=== PATIENT | female | born 1995 | race African-American/Black ===

== ENCOUNTER 2017-02-14 05:58 | Inpatient (IN) ==
[2017-02-14] MEDS ORDERED: MEPERIDINE 50 MG/1 ML VIAL IM PRN (06:12)
[2017-02-14] MEDS ORDERED: BUTORPHANOL 2 MG/ML VIAL IV PRN (06:12)
[2017-02-14] MEDS: LACTATED RINGERS 1,000 ML IV SCH ×3 (06:23→22:50)
[2017-02-14 06:57] LABS: Basophils % 0.1 % (0.0-0.8); Eosinophils # 0.1 10*3/uL (0.0-0.87); Eosinophils % 1.4 % (0.00-10.9); Hematocrit 34.9 VOL% (35.7-47.0); Hemoglobin 11.1 GM/DL (12.0-16.0); Immature Granulocytes % 0.7 %; Immature Granulocytes Absolute 0.06 #; Lymphocytes # 2.5 10*3/uL (1.4-4.0); Lymphocytes % 30.3 % (21.3-54.2); Mean Corpuscular HGB Conc 31.8 GM/DL (32-36); Mean Corpuscular Hemoglobin 24 PG (27-34); Mean Corpuscular Volume 75.9 FL (87-102); Monocytes # 0.6 10*3/uL (0.11-0.8); Monocytes % 7.4 % (1.7-12.7); NRBC # 0.02 10*3/uL; Neutrophils % 60.1 % (38.7-73.9); Platelet Count 130 T/CUMM (130-400); Red Cell Distribution Width 15.3 % (9.3-17.3); White Blood Count 8.4 T/CUMM (4-12)
[2017-02-14 07:18] LABS: Giant Platelets Few; Hypochromasia 1+; Ovalocytes Slight; Platelet Estimate Normal
[2017-02-14 07:23] LABS: Alanine Aminotransferase 18 U/L (13-56); Albumin 2.8 G/DL (3.4-5.0); Alkaline Phosphatase 148 U/L (45-117); Aspartate Amino Transferase 13 U/L (0-37); Bilirubin,Total < 0.39 MG/DL (0.2-1.0); Blood Urea Nitrogen 6 MG/DL (7-18); Calcium 8.5 MG/DL (8.5-10.1); Glucose 85 MG/DL (74-106); Osmolality,Calculated 273.5 MOS/KG (273-304); Potassium 3.7 MMOL/L (3.5-5.1); Sodium 139 MMOL/L (136-145); Total Protein 6.5 G/DL (6.4-8.3)
[2017-02-14] MEDS ORDERED: OXYTOCIN/LR 20 UNIT/1,000 ML BAG IV SCH (07:30)
[2017-02-14] MEDS ORDERED: ACETAMINOPHEN 500 MG TABLET PO ONE (08:38)
[2017-02-14] MEDS ORDERED: hydrOXYzine HCL 25 MG/1 ML VIAL IM PRN (10:31)
[2017-02-14] MEDS ORDERED: ePHEDrine 50 MG/ML AMP IV PRN (10:31)
[2017-02-14] MEDS ORDERED: CITRIC ACID/SODIUM CITRATE 30 ML UDCUP PO ONE (10:31)
[2017-02-14] MEDS ORDERED: LACTATED RINGERS 1,000 ML IV ONE (10:31)
[2017-02-14] MEDS ORDERED: diphenhydrAMINE 50 MG/1 ML VIAL IV PRN ×2 (10:31)
[2017-02-14] MEDS ORDERED: FAMOTIDINE 20 MG/2 ML VIAL IV ONE (10:31)
[2017-02-14] MEDS ORDERED: PROMETHAZINE 25 MG/1 ML VIAL IM ONE (10:31)
[2017-02-14] MEDS ORDERED: fentaNYL 2 MCG/ROPIV 0.2% EPID 150 ML EPIDURAL SCH (11:00)
[2017-02-14] MEDS ORDERED: ROPIVACAINE 0.5% 30 ML VIAL ONE (11:15)
[2017-02-14] MEDS: ONDANSETRON 4 MG/2 ML VIAL IV PRN ×2 (12:10→16:00)
[2017-02-14 12:40] LABS: Apearance,Urine CLEAR (Clear); Bacteria,Urine Occasional /HPF (Few); Bilirubin,Urine Negative (Negative); Blood, Urine Negative (Negative); Glucose,Urine (UA) Negative (Negative); Ketones,Urine Negative (Negative); Mucus,Urine Occasional /LPF (Occasional); Nitrite,Urine Negative (Negative); Protein,Urine Negative; RBC,Urine 1 /HPF (0-4); Urine Color Yellow (Yellow); Urine Specific Gravity 1.009 (1.001-1.035); Urine Urobilinogen < 2.0 EU/DL (0.2-1.0); WBC,Urine <1 /HPF (0-6)
[2017-02-14] MEDS ORDERED: miSOPROStol 200 MCG TABLET ONE (20:11)
[2017-02-14] MEDS ORDERED: LANOLIN 50% CREAM 0.3 OZ TUBE TOP PRN (20:25)
[2017-02-14] MEDS ORDERED: BISACODYL 10 MG SUPP RECTAL PRN (20:25)
[2017-02-14] MEDS ORDERED: MEASLES/MUMPS/RUBELLA VACCINE 0.5 ML VIAL SUBCUT ONE (20:25)
[2017-02-14] MEDS ORDERED: DIPH/TET/ACEL PERT BOOSTER VACCINE 0.5 ML VIAL IM ONE (20:25)
[2017-02-14] MEDS ORDERED: ONDANSETRON 4 MG/2 ML VIAL IV PRN (20:25)
[2017-02-14] MEDS ORDERED: oxyCODONE/ACETAMINOPHEN 5-325 MG TABLET PO PRN (20:25)
[2017-02-14] MEDS ORDERED: WITCH HAZEL PADS 100/JAR TOP PRN (20:25)
[2017-02-14] MEDS ORDERED: RHO(D) IMMUNE GLOBULIN 300 MCG SYRINGE IM ONE (20:25)
[2017-02-14] MEDS ORDERED: BENZOCAINE 20%/MENTHOL 0.5% SPRAY 56 GM CAN TOP PRN (20:25)
[2017-02-14] MEDS ORDERED: HYDROCORTISONE 2.5% RECTAL CREAM 30 GM TUBE TOP PRN (20:25)
[2017-02-14] MEDS ORDERED: ACETAMINOPHEN 325 MG TABLET PO PRN (20:25)
[2017-02-14] MEDS ORDERED: OXYTOCIN/LR 20 UNIT/1,000 ML BAG IV ONE ×2 (20:25→22:48)
[2017-02-14] MEDS: IBUPROFEN 800 MG TABLET PO PRN (21:36)
[2017-02-15] MEDS: oxyCODONE/ACETAMINOPHEN 5-325 MG TABLET PO PRN ×3 (05:21→19:58)
[2017-02-15 07:17] LABS: Basophils % 0.2 % (0.0-0.8); Eosinophils # 0.1 10*3/uL (0.0-0.87); Eosinophils % 0.5 % (0.00-10.9); Hematocrit 29.7 VOL% (35.7-47.0); Hemoglobin 9.6 GM/DL (12.0-16.0); Immature Granulocytes % 0.6 %; Immature Granulocytes Absolute 0.08 #; Lymphocytes # 2.3 10*3/uL (1.4-4.0); Lymphocytes % 17.3 % (21.3-54.2); Mean Corpuscular HGB Conc 32.3 GM/DL (32-36); Mean Corpuscular Hemoglobin 25 PG (27-34); Mean Corpuscular Volume 75.8 FL (87-102); Monocytes % 7.3 % (1.7-12.7); Neutrophils # 9.7 10*3/uL (1.4-7.4); Neutrophils % 74.1 % (38.7-73.9); Platelet Count 113 T/CUMM (130-400); Red Blood Count 3.92 MC/CUMM (3.8-5.5); Red Cell Distribution Width 15.3 % (9.3-17.3); White Blood Count 13.1 T/CUMM (4-12)
[2017-02-15 07:45] LABS: Band Neutrophils 1 % (0-10); Giant Platelets Few; Hypochromasia 1+; Lymphocytes 16 % (20-55); Platelet Estimate Decreased; Segmented Neutrophils 79 % (50-85); Total Cells Counted 100
[2017-02-15] MEDS: IBUPROFEN 800 MG TABLET PO PRN ×2 (09:05→19:55)
[2017-02-15] MEDS: DOCUSATE SODIUM 100 MG CAPSULE PO SCH ×3 (15:49→20:45)
[2017-02-16] MEDS: IBUPROFEN 800 MG TABLET PO PRN ×2 (03:07→08:32)
[2017-02-16] MEDS: oxyCODONE/ACETAMINOPHEN 5-325 MG TABLET PO PRN (03:09)
[2017-02-16 07:36] VITALS: BP 130/61
[2017-02-16] MEDS: DOCUSATE SODIUM 100 MG CAPSULE PO SCH (08:32)
== END 2017-02-16 11:05 | disposition home or self-care (01) | DRG 775 ==
LOC: N.LDOUT 05:58 → N.LD 06:03 → N.OB 23:00
PROVIDERS: ADMIT Obstetrics & Gynecology; ATTEND Obstetrics & Gynecology

== ENCOUNTER 2020-07-31 10:28 | Inpatient (IN) ==
[2020-07-31] MEDS: LACTATED RINGERS 1,000 ML IV SCH ×2 (10:50→21:15)
[2020-07-31] MEDS ORDERED: BUTORPHANOL 2 MG/ML VIAL IV PRN (11:10)
[2020-07-31] MEDS ORDERED: ONDANSETRON 4 MG/2 ML VIAL IV PRN ×2 (11:10→22:07)
[2020-07-31] MEDS ORDERED: MEPERIDINE 50 MG/1 ML VIAL IV PRN (11:10)
[2020-07-31 11:17] LABS: Eosinophils % 0.7 % (0.00-10.9); Hematocrit 27.3 VOL% (35.7-47.0); Hemoglobin 8.1 GM/DL (12.0-16.0); Immature Granulocytes % 0.7 %; Immature Granulocytes Absolute 0.04 #; Lymphocytes # 1.5 10*3/uL (1.4-4.0); Lymphocytes % 25.9 % (21.3-54.2); Mean Corpuscular HGB Conc 29.7 GM/DL (32-36); Monocytes % 8.1 % (1.7-12.7); Neutrophils % 64.6 % (38.7-73.9); Platelet Count 153 T/CUMM (130-400); Red Blood Count 3.69 MC/CUMM (3.8-5.5); White Blood Count 5.8 T/CUMM (4-12)
[2020-07-31] MEDS ORDERED: OXYTOCIN/LR 20 UNIT/1,000 ML BAG IV SCH (11:30)
[2020-07-31 11:32] LABS: Alanine Aminotransferase 13 U/L (13-56); Albumin 2.6 G/DL (3.4-5.0); Alkaline Phosphatase 157 U/L (45-117); Aspartate Amino Transferase 15 U/L (0-37); Bilirubin,Total < 0.39 MG/DL (0.2-1.0); Blood Urea Nitrogen 4 MG/DL (7-18); Calcium 8.4 MG/DL (8.5-10.1); Carbon Dioxide 21 MMOL/L (21-32); Estimated Glom Filtration Rate 197 ML/MIN; Glucose 75 MG/DL (74-106); Osmolality,Calculated 270.7 MOS/KG (273-304); Potassium 3.7 MMOL/L (3.5-5.1); Sodium 138 MMOL/L (136-145); Total Protein 6.6 G/DL (6.4-8.2)
[2020-07-31 11:56] LABS: Tear Drop Cells Few
[2020-07-31 11:57] LABS: Hypochromasia 3+; Microcytosis 2+; Ovalocytes Few; Platelet Estimate Adequate; Polychromasia Slight
[2020-07-31] MEDS ORDERED: hydrOXYzine HCL 25 MG/1 ML VIAL IM PRN (11:59)
[2020-07-31] MEDS ORDERED: diphenhydrAMINE 50 MG/1 ML VIAL IV PRN ×2 (11:59)
[2020-07-31] MEDS ORDERED: PROMETHAZINE 25 MG/1 ML VIAL IM ONE (11:59)
[2020-07-31] MEDS ORDERED: LACTATED RINGERS 1,000 ML IV ONE (11:59)
[2020-07-31] MEDS ORDERED: ePHEDrine 50 MG/ML VIAL IV PRN (11:59)
[2020-07-31] MEDS ORDERED: FAMOTIDINE 20 MG/2 ML VIAL IV ONE (11:59)
[2020-07-31] MEDS ORDERED: NALOXONE 0.4 MG/ML VIAL IV PRN (11:59)
[2020-07-31] MEDS ORDERED: ONDANSETRON 4 MG/2 ML VIAL IV ONE (11:59)
[2020-07-31] MEDS ORDERED: CITRIC ACID/SODIUM CITRATE 30 ML UDCUP PO ONE (11:59)
[2020-07-31] MEDS ORDERED: fentaNYL 2 MCG/ROPIV 0.2% EPID 100 ML EPIDURAL SCH (12:00)
[2020-07-31 13:14] LABS: Rubella Antibody IgG Result Reactive (NonReactive)
[2020-07-31 14:33] LABS: Bilirubin,Urine Negative (Negative); Blood, Urine Negative (Negative); Glucose,Urine (UA) Negative (Negative); Ketones,Urine Negative (Negative); Mucus,Urine Occasional /LPF (Occasional); Nitrite,Urine Negative (Negative); Protein,Urine Negative; RBC,Urine 6 /HPF (0-4); Squamous Epithelial Cell,Urine Moderate /HPF (0-10); Urine Appearance CLOUDY (Clear); Urine Color Yellow (Yellow); Urine Specific Gravity 1.012 (1.001-1.035); Urine Urobilinogen < 2.0 EU/DL (0.2-1.0)
[2020-07-31] MEDS ORDERED: miSOPROStoL 200 MCG TABLET ONE (21:25)
[2020-07-31] MEDS ORDERED: TRANEXAMIC ACID 1,000 MG/10 ML VIAL ONE (21:26)
[2020-07-31] MEDS ORDERED: OXYTOCIN/LR 20 UNIT/1,000 ML BAG IV ONE ×2 (21:26→22:07)
[2020-07-31] MEDS ORDERED: METHYLERGONOVINE 0.2 MG/1 ML AMP ONE (21:26)
[2020-07-31] MEDS ORDERED: CARBOPROST TROMETHAMINE 250 MCG/ML AMP IM ONE (21:26)
[2020-07-31] MEDS ORDERED: LANOLIN 50% CREAM 0.3 OZ TUBE TOP PRN (22:07)
[2020-07-31] MEDS ORDERED: HYDROCORTISONE 2.5% RECTAL CREAM 30 GM TUBE TOP PRN (22:07)
[2020-07-31] MEDS ORDERED: BENZOCAINE 20%/MENTHOL 0.5% SPRAY 56 GM CAN TOP PRN (22:07)
[2020-07-31] MEDS ORDERED: WITCH HAZEL PADS 100/JAR TOP PRN (22:07)
[2020-07-31] MEDS ORDERED: ACETAMINOPHEN 325 MG TABLET PO PRN (22:07)
[2020-07-31] MEDS ORDERED: MEASLES/MUMPS/RUBELLA VACCINE 0.5 ML VIAL SUBCUT ONE (22:07)
[2020-07-31] MEDS ORDERED: DIPH/TET/ACEL PERT BOOSTER VACCINE 0.5 ML VIAL IM ONE (22:07)
[2020-07-31] MEDS ORDERED: BISACODYL 10 MG SUPP RECTAL PRN (22:07)
[2020-07-31] MEDS ORDERED: oxyCODONE/ACETAMINOPHEN 5-325 MG TABLET PO PRN (22:07)
[2020-07-31] MEDS ORDERED: RHO(D) IMMUNE GLOBULIN 300 MCG SYRINGE IM ONE (22:07)
[2020-07-31] MEDS ORDERED: ALUMINUM/MAGNES/SIMETH MAX STR 30 ML UDCUP PO PRN (22:09)
[2020-08-01] MEDS: IBUPROFEN 800 MG TABLET PO PRN ×2 (00:38→17:37)
[2020-08-01 05:11] LABS: Basophils % 0.1 % (0.0-0.8); Eosinophils % 0.1 % (0.00-10.9); Hematocrit 23.9 VOL% (35.7-47.0); Hemoglobin 7.6 GM/DL (12.0-16.0); Immature Granulocytes % 0.5 %; Immature Granulocytes Absolute 0.05 #; Lymphocytes # 1.8 10*3/uL (1.4-4.0); Lymphocytes % 18.3 % (21.3-54.2); Mean Corpuscular HGB Conc 31.8 GM/DL (32-36); Mean Corpuscular Volume 71.1 FL (87-102); Monocytes % 7.3 % (1.7-12.7); Neutrophils % 73.7 % (38.7-73.9); Platelet Count 124 T/CUMM (130-400); Red Blood Count 3.36 MC/CUMM (3.8-5.5); Red Cell Distribution Width 16.5 % (9.3-17.3)
[2020-08-01 05:14] LABS: White Blood Count 9.5 T/CUMM (4-12)
[2020-08-01 06:03] LABS: Platelet Estimate Adequate
[2020-08-01 06:04] LABS: Anisocytosis 1+; Poikilocytosis Slight; Tear Drop Cells Few
[2020-08-01 06:05] LABS: Ovalocytes Few
[2020-08-01] MEDS: FERROUS SULFATE 325 MG TABLET PO SCH ×3 (08:52→20:53)
[2020-08-01] MEDS: DOCUSATE SODIUM 100 MG CAPSULE PO SCH ×2 (08:52→20:53)
[2020-08-01] MEDS: oxyCODONE/ACETAMINOPHEN 5-325 MG TABLET PO PRN (17:36)
[2020-08-02] MEDS: oxyCODONE/ACETAMINOPHEN 5-325 MG TABLET PO PRN (01:50)
[2020-08-02] MEDS: IBUPROFEN 800 MG TABLET PO PRN (01:51)
[2020-08-02] MEDS: DOCUSATE SODIUM 100 MG CAPSULE PO SCH (09:07)
[2020-08-02] MEDS: FERROUS SULFATE 325 MG TABLET PO SCH (09:08)
[2020-08-02 14:25] VITALS: BP 123/57
== END 2020-08-02 12:45 | disposition home or self-care (01) | DRG 560 ==
LOC: N.LD 10:28 → N.OB 08-01 01:30
PROVIDERS: ADMIT Obstetrics & Gynecology; ATTEND Obstetrics & Gynecology